=== PATIENT | male | born 1955 | race Caucasian/White ===

== ENCOUNTER → 2019-11-25 12:13 | Outpatient (CLI) | payer SELFPAY ==
[2019-11-25 12:30] LABS: Basophils % 0.5 % (0.1-2.0); Eosinophils # 0.1 K/mm3 (0.0-0.4); Eosinophils % 1.9 % (0.1-12.0); Hemoglobin 14.9 g/dL (14.1-18.0); Lymphocytes % 19.3 % (10-50); Mean Corpuscular HGB Conc 34.7 g/dL (31.8-35.4); Mean Corpuscular Hemoglobin 30.9 pg (27.0-31.2); Mean Platelet Volume 8.4 fl (7.4-10.4); Monocytes # 0.3 K/mm3 (0.1-1.0); Monocytes % 4.7 % (1.7-9.3); Neutrophils # 3.9 K/mm3 (1.8-7.8); Neutrophils % 73.5 % (37.0-80.0); Platelet Count 206 K/mm3 (142-424); Red Blood Count 4.83 M/mm3 (4.60-6.20); White Blood Count 5.4 K/mm3 (4.8-10.8)
[2019-11-25 13:20] LABS: Alanine Aminotransferase 13 U/L (12-78); Albumin Level 4.3 g/dl (3.5-5.0); Albumin/Globulin Ratio 1.8 (1.1-1.8); Alkaline Phosphatase 88 U/L (38-126); Anion Gap 10.7 mEq/L (5-15); Aspartate Amino Transferase 27 U/L (17-59); Bilirubin,Total 1.2 mg/dl (0.2-1.3); Blood Urea Nitrogen 22 mg/dl (9-20); Calcium 9.2 mg/dl (8.4-10.2); Carbon Dioxide 31 mmol/L (22.0-30.0); Chloride 105 mmol/L (98-107); Estimated Glomerular Filt Rate 97 ml/min (>60); GFR (African American) 117 ML/MIN (>60); Globulin 2.4 g/dL (1.3-3.2); Glucose 104 mg/dl (74-100); Potassium 4.7 mmoL/L (3.5-5.1); Sodium 142 mmol/L (136-145); Total Protein,Serum 6.7 g/dl (6.3-8.2)
[2019-11-25 13:41] LABS: Hemoglobin A1C 5.6 % (4.0-6.0)
[2019-11-25 18:23] LABS: Total Iron Binding Capacity 322 ug/dL (261-462)
[2019-11-26 15:32] LABS: Vitamin B12 316 pg/mL (232-1245)
== END ==
PROVIDERS: Visit Provider Nurse Practitioner Family
DX: R00.1 Bradycardia, unspecified (principal); R73.09 Other abnormal glucose; E61.1 Iron deficiency; Z12.5 Encounter for screening for malignant neoplasm of prostate
CPT/HCPCS: 36415; 80053; 82607; 83036; 83550; 85025; G0103

== ENCOUNTER → 2020-04-14 16:36 | Outpatient (CLI) | payer MEDICAID, SELFPAY ==
[2020-04-14 20:48] LABS: Coronavirus 19 IgG Antibody Negative (Negative); Coronavirus 19 IgM Antibody Negative (Negative)
== END ==
PROVIDERS: PCP Nurse Practitioner Family; Visit Provider Nurse Practitioner Family
DX: Z03.818 Encounter for observation for suspected exposure to other biological agents ruled out (principal)
CPT/HCPCS: 36415; 86328

== ENCOUNTER → 2020-06-23 11:35 | Outpatient (CLI) | payer OTHER, SELFPAY ==
[2020-06-23 11:57] LABS: Basophils # 0.1 K/mm3 (0-0.2); Basophils % 0.8 % (0.1-2.0); Eosinophils # 0.1 K/mm3 (0.0-0.4); Hematocrit 44.1 % (42.0-52.0); Hemoglobin 14.3 g/dL (14.1-18.0); Lymphocytes # 0.9 K/mm3 (0.7-4.5); Lymphocytes % 15.7 % (10-50); Mean Corpuscular HGB Conc 32.5 g/dL (31.8-35.4); Mean Corpuscular Hemoglobin 28.7 pg (27.0-31.2); Mean Corpuscular Volume 88.5 fl (80-94); Mean Platelet Volume 7.5 fl (7.4-10.4); Monocytes # 0.3 K/mm3 (0.1-1.0); Neutrophils # 4.3 K/mm3 (1.8-7.8); Neutrophils % 76.6 % (37.0-80.0); Platelet Count 252 K/mm3 (142-424); Red Blood Count 4.98 M/mm3 (4.60-6.20); Red Cell Distribution Width 12.8 % (11.5-17.5); White Blood Count 5.7 K/mm3 (4.8-10.8)
[2020-06-23 12:15] LABS: Hemoglobin A1C 5.5 % (4.0-6.0)
[2020-06-23 13:26] LABS: Anion Gap 11.7 mEq/L (5-15); Blood Urea Nitrogen 12 mg/dl (9-20); Calcium 10.1 mg/dl (8.4-10.2); Carbon Dioxide 30 mmol/L (22.0-30.0); Chloride 105 mmol/L (98-107); Chol/HDL Ratio 2.2 (1-3.5); Cholesterol 220 mg/dl (140-200); Estimated Glomerular Filt Rate 97 ml/min (>60); GFR (African American) 117 ML/MIN (>60); Glucose 105 mg/dl (74-100); HDL Cholesterol 100 mg/dl (40-60); Potassium 4.7 mmoL/L (3.5-5.1); Sodium 142 mmol/L (136-145); Triglycerides 107 mg/dl (30-150); VLDL Cholesterol 21 mg/dL (0-40)
[2020-06-23 13:37] LABS: Direct LDL Cholesterol 90.77 mg/dL (100-129)
[2020-06-23 13:41] LABS: 25-OH Vitamin D, Total 27.3 ng/mL (30-100)
[2020-06-23 13:42] LABS: T4 (Thyroxine) 4.1 ug/dl (5.53-11.0)
[2020-06-23 13:56] LABS: Thyroid Stimulating Hormone 1.99 uIU/mL (0.465-4.68)
== END ==
PROVIDERS: Visit Provider Nurse Practitioner Family
DX: R53.83 Other fatigue (principal); R73.03 Prediabetes; E78.5 Hyperlipidemia, unspecified; E55.9 Vitamin D deficiency, unspecified
CPT/HCPCS: 36415; 80048; 80061; 82306; 83036; 84436; 84443; 85025

== ENCOUNTER → 2020-06-23 11:56 | Outpatient (CLI) | payer OTHER, SELFPAY | PROVIDERS: PCP Nurse Practitioner Family; Visit Provider Internal Medicine Cardiovascular Disease | DX: R55 Syncope and collapse (principal); R42 Dizziness and giddiness; R00.1 Bradycardia, unspecified | CPT/HCPCS: 93225; 93226 ==

== ENCOUNTER → 2020-07-07 13:36 | Outpatient (CLI) | payer OTHER, SELFPAY | LOC: RT 13:37 → SL 13:39 | PROVIDERS: PCP Nurse Practitioner Family; Visit Provider Internal Medicine Cardiovascular Disease | DX: G47.33 Obstructive sleep apnea (adult) (pediatric) (principal); R55 Syncope and collapse; R42 Dizziness and giddiness; R00.1 Bradycardia, unspecified | CPT/HCPCS: 95806 ==

== ENCOUNTER → 2020-07-10 07:32 | Outpatient (CLI) | payer SELFPAY ==
--- NOTE | 2020-07-10 07:33 | CT_ITS ---
PROCEDURE: CT HEART W CALCIUM SCORE CLINICAL HISTORY: eval for cad COMPARISON: No exams were available for comparison TECHNIQUE: Axial images obtained with sagittal and coronal reformats. All CT scans at the facility use one or more dose reduction, viz: automated exposure control, ma/kV adjustment per patient size (including targeted exams where dose is matched to indication, i.e. head), or iterative reconstruction technique. FINDINGS: Coronary artery calcium score is 0. No identifiable calcific atherosclerotic plaque with very low cardiovascular disease risk There is an area of coarse calcification in the left hepatic lobe nonspecific. Tissue density noted medial to the lesser curvature of the stomach incompletely image possibly due to the body of the pancreas. Incidental note is made of 4 mm nodule in the lingula. Small nodular density is present in the right minor fissure 4 mm. IMPRESSION: No identifiable calcific atherosclerotic plaque with very low cardiovascular disease risk Small bilateral pulmonary nodules nonspecific. 6-12 month follow-up may confirm stability Dictated by: Shreyas Sotomayor MD 07/10/2020 16:56 Shreyas Sotomayor MD in [facility] 07/10/2020 16:56
[2020-07-10 11:20] LABS: Basophils % 0.6 % (0.1-2.0); Eosinophils # 0.1 K/mm3 (0.0-0.4); Eosinophils % 1.9 % (0.1-12.0); Hematocrit 44.6 % (42.0-52.0); Hemoglobin 14.7 g/dL (14.1-18.0); Lymphocytes % 17.1 % (10-50); Mean Corpuscular Hemoglobin 29.1 pg (27.0-31.2); Mean Corpuscular Volume 88.1 fl (80-94); Mean Platelet Volume 7.7 fl (7.4-10.4); Monocytes # 0.3 K/mm3 (0.1-1.0); Monocytes % 5.8 % (1.7-9.3); Neutrophils # 4.4 K/mm3 (1.8-7.8); Neutrophils % 74.6 % (37.0-80.0); Platelet Count 246 K/mm3 (142-424); Red Blood Count 5.06 M/mm3 (4.60-6.20); Red Cell Distribution Width 12.8 % (11.5-17.5); White Blood Count 5.9 K/mm3 (4.8-10.8)
[2020-07-10 11:42] LABS: Chloride 106 mmol/L (98-107); Potassium 4.9 mmoL/L (3.5-5.1); Sodium 141 mmol/L (136-145)
[2020-07-10 11:45] LABS: Blood Urea Nitrogen 16 mg/dl (9-20); Estimated Glomerular Filt Rate 97 ml/min (>60); GFR (African American) 117 ML/MIN (>60)
[2020-07-10 11:46] LABS: Anion Gap 8.9 mEq/L (5-15); Calcium 9.9 mg/dl (8.4-10.2); Carbon Dioxide 31 mmol/L (22.0-30.0); Glucose 116 mg/dl (74-100)
[2020-07-10 12:00] LABS: Coronavirus 19 IgG Antibody Negative (Negative); Coronavirus 19 IgM Antibody Negative (Negative)
== END ==
PROVIDERS: Internal Medicine; PCP Nurse Practitioner Family; Visit Provider Internal Medicine Cardiovascular Disease
DX: R42 Dizziness and giddiness (principal); R55 Syncope and collapse; R00.1 Bradycardia, unspecified; Z20.822 Contact with and (suspected) exposure to COVID-19; Z13.6 Encounter for screening for cardiovascular disorders
CPT/HCPCS: 75571; 80048; 85025; 86328; 93306

== ENCOUNTER → 2020-07-10 10:52 | Outpatient (CLI) | payer OTHER, SELFPAY ==
--- NOTE | 2020-07-10 | CA_ITS ---
APPROVED REPORT Exam: Exercise Treadmill Technologist: Emilia Schroeder Ht: 6 ft 0 in Wt: 220 lbs BSA: 2.22 m2 HR: 51 bpm BP: 123/65 mmHg Indications: Syncope Stress Test Details Test: Bill HR Resting HR: 51 bpm Max Heart Rate (APMHR): 154 bpm Max HR Achieved: 142 bpm Target HR (85% APMHR): 130 bpm % of APMHR: 92 Recovery HR: 68 bpm BP Resting BP: 123.0/65.0 mmHg Max BP: 150.0/86.0 mmHg Recovery BP: 127.0/69.0 mmHg ECG Resting ECG: Sinus rhythm Clinical Exercise duration: 05:55 min Highest Stage Achieved: Exercise capacity: 7.0 METs Stress ECG Conclusion Bill protocol complete, METs 7.0, Test stopped due to shortness of breath. Patient exercised 5:55. Symptoms: Shortness of breath during peak exercise, resolved in recovery. No chest pain. Arrhythmias/Ectopy: No ectopy noted. ST- T Changes: Greater than 1.[address] depression. Conclusion: GXT only, Appropriate Blood Pressure response. Average exercise capacity, Abnormal GXT. Electronically signed by : Blair Rosenberg, 07/13/2020 15:17:13
== END ==
PROVIDERS: Visit Provider Internal Medicine
DX: Z01.818 Encounter for other preprocedural examination (principal); Z20.822 Contact with and (suspected) exposure to COVID-19; R07.89 Other chest pain
CPT/HCPCS: 80048; 85025; 86328; 93017; 93306

== ENCOUNTER 2020-07-14 10:46 | Day surgery (SDC) | payer OTHER, SELFPAY ==
[2020-07-14] VITALS (11 sets, daily range): BP systolic 92–135; BP diastolic 47–86; PULSE 47–66; RESP 16–20; TEMP 36.7; O2SAT 64–99; BMI 29.1
--- NOTE | 2020-07-14 10:50 | IR_ITS ---
APPROVED REPORT Patient Location: Outpatient Saw[facility] Relief Worker: CHIKA Yan RT (R) PROCEDURES Left heart catheterization Left ventriculogram Selective coronary angiogram INDICATION Abnormal echocardiogram, Angina pectoris, Abnormal EKG Informed consent was obtained prior to the procedure. COMPLICATIONS None Estimated Blood Loss: Less than 10 mls TECHNIQUE One percent lidocaine used to anesthetize the right anterior aspect of the wrist. The right radial artery was accessed via the Seldinger technique. A 6 Chilean sheath was placed in the right radial artery. 2.5 mg of verapamil, 800 mcg of nitroglycerin, 1mg Lidocaine and 5000 U Heparin were given through the arterial sheath. The trap catheter was also used to perform left heart catheterization, left ventriculogram and selective coronary angiogram. At the end of the procedure the sheath was removed good hemostasis was achieved using Traclet band, patient was transferred to the postop holding area in stable condition. ANGIOGRAPHIC RESULTS The left main artery Normal The left anterior descending artery Proximally normal with a mid vessel 90% systolic compression/myocardial bridge The circumflex artery Nondominant normal The right coronary artery Dominant normal The HENRIQUEZ ventriculogram reveals Hyperdynamic with some evidence of apical hocm The left ventricular end-diastolic pressure 15 mmHg IMPRESSION No angiographic evidence of atherosclerotic plaque 90% mid LAD systolic compression/myocardial bridge Hyperdynamic ventricle with suggestion of apical hocm Mildly elevated LVEDP PLAN 1. 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 If patient develops recalcitrant angina pectoris in the future consideration to stent this vessel was possible or possibly consider single-vessel CABG with CORCORAN to the LAD. This should be a last resort 2. Recommend verapamil plus beta-blockers 3. Avoid ZITA inhibitors or other afterload reducing medications Electronically signed by : Blair Rosenberg, 07/14/2020 12:29:50
== END 2020-07-14 15:05 | disposition home or self-care (01) ==
LOC: CATHLAB 10:48
PROVIDERS: PCP Nurse Practitioner Family; Visit Provider Internal Medicine
DX: I42.2 Other hypertrophic cardiomyopathy (principal); R94.39 Abnormal result of other cardiovascular function study; Z87.891 Personal history of nicotine dependence; I25.118 Atherosclerotic heart disease of native coronary artery with other forms of angina pectoris; R55 Syncope and collapse
CPT/HCPCS: 93458; 99152; C1725; C1769; J1644; Q9967

== ENCOUNTER → 2020-07-26 11:05 | Outpatient (CLI) | payer OTHER, SELFPAY ==
--- NOTE | 2020-07-26 | CA_ITS ---
APPROVED REPORT EXAM: Comprehensive 2D, Doppler, and color-flow Echocardiogram Superintendent Maintenance: SHERRY Manuel, RVS Ht: 6 ft 0 in Wt: 215lbs BSA: 2.20 HR: 50 bpm BP: 124/65 mmHg Rhythm: Bradycardia Indications: further assessment for Yuan's endocarditis Echo Enhancing Agent Indication: Endocardial border delineation Agent(s) / Amount(s) Used: Definity 2 cc Left Ventricle Atrium is mildly enlarged, left ventricle is normal size, left ventricle wall thickness is upper limit of normal, there is preserved left ventricular systolic function, visually estimated ejection fraction 55 to 60% with no obvious regional wall motion abnormality, Definity contrast was utilized to delineate the endocardial surfaces, there is no left ventricular thrombus seen. Right Ventricle Right atrium and right ventricle are relatively normal size and function. Aortic Valve Aortic valve is minimally thickened and fibrosed, there is no aortic stenosis. Mitral Valve Mitral valve is grossly normal. Tricuspid Valve Tricuspid valve grossly normal. Pulmonic Valve Pulmonic valve is poorly visualized. Great Vessels Aortic root is normal size. Pericardium No significant pericardial effusion noted. Conclusion 1. Limited echocardiogram with Definity contrast performed. 2. Normal left ventricular size, preserved left ventricular systolic function, visually estimated ejection fraction 55 to 60% with no regional wall motion abnormality, there is no evidence of left ventricular thrombus, apical hypertrophy, or basal septal hypertrophy to suggest hypertrophic cardiomyopathy. 3. No significant pericardial effusion noted. Electronically signed by : Jose G Solorio, 07/27/2020 15:16:57
== END ==
PROVIDERS: PCP Nurse Practitioner Family; Visit Provider Internal Medicine Cardiovascular Disease
DX: R06.00 Dyspnea, unspecified (principal); R94.31 Abnormal electrocardiogram [ECG] [EKG]; R94.39 Abnormal result of other cardiovascular function study; R93.1 Abnormal findings on diagnostic imaging of heart and coronary circulation; R55 Syncope and collapse; I20.8 Other forms of angina pectoris; I42.2 Other hypertrophic cardiomyopathy
CPT/HCPCS: 93308; Q9957

== ENCOUNTER → 2020-12-04 13:36 | Outpatient (CLI) | payer SELFPAY ==
[2020-12-07 07:34] LABS: QuantiFERON-TB Gold Plus Positive (Negative)
== END ==
PROVIDERS: Visit Provider Emergency Medicine
DX: Z11.1 Encounter for screening for respiratory tuberculosis (principal)
CPT/HCPCS: 36415; 86480

== ENCOUNTER → 2020-12-07 15:11 | Outpatient (CLI) | payer SELFPAY ==
--- NOTE | 2020-12-07 15:15 | XR_ITS ---
PROCEDURE: XR CHEST 2V CLINICAL HISTORY: Rule out TB Positive TB test COMPARISON: No exams were available for comparison FINDINGS: The cardiomediastinal silhouette and pulmonary vascularity are within normal limits. The lungs are clear without infiltrates, suspicious nodules, or pleural effusions. Degenerative change thoracic spine IMPRESSION: No acute findings. Dictated by: Shreyas Sotomayor MD 12/07/2020 16:07 Shreyas Sotomayor MD in [place] 12/07/2020 16:07
== END ==
PROVIDERS: PCP Nurse Practitioner Family; Visit Provider Nurse Practitioner Family
DX: R76.11 Nonspecific reaction to tuberculin skin test without active tuberculosis (principal)
CPT/HCPCS: 71046

== ENCOUNTER → 2021-01-19 12:24 | Outpatient (CLI) | payer OTHER, SELFPAY ==
[2021-01-19 12:45] LABS: Basophils # 0.1 K/mm3 (0-0.2); Basophils % 0.8 % (0.1-2.0); Eosinophils # 0.1 K/mm3 (0.0-0.4); Eosinophils % 1.8 % (0.1-12.0); Hematocrit 46.1 % (42.0-52.0); Hemoglobin 15.1 g/dL (14.1-18.0); Lymphocytes # 1.1 K/mm3 (0.7-4.5); Lymphocytes % 18.2 % (10-50); Mean Corpuscular HGB Conc 32.8 g/dL (31.8-35.4); Mean Corpuscular Volume 91.3 fl (80-94); Mean Platelet Volume 7.8 fl (7.4-10.4); Monocytes # 0.4 K/mm3 (0.1-1.0); Monocytes % 5.7 % (1.7-9.3); Neutrophils # 4.5 K/mm3 (1.8-7.8); Neutrophils % 73.6 % (37.0-80.0); Platelet Count 246 K/mm3 (142-424); Red Blood Count 5.04 M/mm3 (4.60-6.20); Red Cell Distribution Width 12.7 % (11.5-17.5); White Blood Count 6.1 K/mm3 (4.8-10.8)
[2021-01-19 15:45] LABS: Alanine Aminotransferase 17 U/L (12-78); Albumin Level 4.5 g/dl (3.5-5.0); Albumin/Globulin Ratio 1.7 (1.1-1.8); Alkaline Phosphatase 74 U/L (38-126); Anion Gap 14.2 mEq/L (5-15); Aspartate Amino Transferase 31 U/L (17-59); Bilirubin,Total 0.7 mg/dl (0.2-1.3); Blood Urea Nitrogen 19 mg/dl (9-20); Calcium 9.6 mg/dl (8.4-10.2); Carbon Dioxide 30 mmol/L (22.0-30.0); Chloride 103 mmol/L (98-107); Estimated Glomerular Filt Rate 113 ml/min (>60); GFR (African American) 137 ML/MIN (>60); Globulin 2.7 g/dL (1.3-3.2); Glucose 108 mg/dl (74-100); Potassium 5.2 mmoL/L (3.5-5.1); Sodium 142 mmol/L (136-145); Total Protein,Serum 7.2 g/dl (6.3-8.2)
== END ==
PROVIDERS: Visit Provider Internal Medicine Pulmonary Disease
DX: J45.909 Unspecified asthma, uncomplicated (principal); Z22.7 Latent tuberculosis
CPT/HCPCS: 36415; 80053; 85025

== ENCOUNTER → 2021-02-19 08:49 | Outpatient (CLI) | payer OTHER, SELFPAY ==
[2021-02-19 11:46] LABS: Alanine Aminotransferase 17 U/L (12-78); Alkaline Phosphatase 77 U/L (38-126); Aspartate Amino Transferase 30 U/L (17-59); Bilirubin,Direct 0.4 mg/dl (0.0-0.4); Bilirubin,Total 0.4 mg/dl (0.2-1.3); Total Protein,Serum 6.7 g/dl (6.3-8.2)
== END ==
PROVIDERS: Visit Provider Internal Medicine Pulmonary Disease
DX: Z22.7 Latent tuberculosis (principal)
CPT/HCPCS: 36415; 80076

== ENCOUNTER → 2021-03-26 09:39 | Outpatient (CLI) | payer OTHER, SELFPAY ==
[2021-03-26 11:26] LABS: Alanine Aminotransferase 18 U/L (12-78); Albumin Level 4.5 g/dl (3.5-5.0); Alkaline Phosphatase 61 U/L (38-126); Aspartate Amino Transferase 30 U/L (17-59); Bilirubin,Direct 0.2 mg/dl (0.0-0.4); Bilirubin,Indirect 0.3 mg/dL (0.0-0.9); Bilirubin,Total 0.5 mg/dl (0.2-1.3); Bilirubin,Unconjugated 0.3 mg/dL (0.0-1.1); Total Protein,Serum 6.9 g/dl (6.3-8.2)
== END ==
PROVIDERS: Visit Provider Internal Medicine Pulmonary Disease
DX: Z22.7 Latent tuberculosis (principal)
CPT/HCPCS: 36415; 80076

== ENCOUNTER → 2021-04-23 12:41 | Outpatient (CLI) | payer OTHER, SELFPAY ==
[2021-04-23 13:46] LABS: Alanine Aminotransferase 17 U/L (12-78); Alkaline Phosphatase 61 U/L (38-126); Aspartate Amino Transferase 34 U/L (17-59); Bilirubin,Indirect 0.2 mg/dL (0.0-0.9); Bilirubin,Total 0.2 mg/dl (0.2-1.3); Bilirubin,Unconjugated 0.2 mg/dL (0.0-1.1)
[2021-04-23 13:47] LABS: Albumin Level 4.4 g/dl (3.5-5.0); Total Protein,Serum 6.9 g/dl (6.3-8.2)
== END ==
PROVIDERS: Visit Provider Internal Medicine Pulmonary Disease
DX: Z22.7 Latent tuberculosis (principal)
CPT/HCPCS: 36415; 80076

== ENCOUNTER → 2021-10-12 09:50 | Outpatient (CLI) | payer OTHER, SELFPAY ==
[2021-10-12 17:13] LABS: Alanine Aminotransferase 19 U/L (12-78); Albumin Level 4.5 g/dl (3.5-5.0); Albumin/Globulin Ratio 1.6 (1.1-1.8); Alkaline Phosphatase 92 U/L (38-126); Anion Gap 11.9 mEq/L (5-15); Aspartate Amino Transferase 34 U/L (17-59); Bilirubin,Total 1.3 mg/dl (0.2-1.3); Blood Urea Nitrogen 18 mg/dl (9-20); Calcium 9.5 mg/dl (8.4-10.2); Carbon Dioxide 28 mmol/L (22.0-30.0); Chloride 102 mmol/L (98-107); Chol/HDL Ratio 2.4 (1-3.5); Cholesterol 215 mg/dl (140-200); Estimated Glomerular Filt Rate 84 ml/min (>60); GFR (African American) 102 ML/MIN (>60); Globulin 2.8 g/dL (1.3-3.2); Glucose 114 mg/dl (74-100); HDL Cholesterol 88 mg/dl (40-60); Potassium 3.9 mmoL/L (3.5-5.1); Sodium 138 mmol/L (136-145); Total Protein,Serum 7.3 g/dl (6.3-8.2); Triglycerides 93 mg/dl (30-150); VLDL Cholesterol 19 mg/dL (0-40)
[2021-10-12 17:21] LABS: Basophils # 0.1 K/mm3 (0-0.2); Basophils % 1.1 % (0.1-2.0); Eosinophils # 0.1 K/mm3 (0.0-0.4); Eosinophils % 1.1 % (0.1-12.0); Hematocrit 45.9 % (42.0-52.0); Hemoglobin 15.6 g/dL (14.1-18.0); Lymphocytes # 0.9 K/mm3 (0.7-4.5); Mean Corpuscular HGB Conc 33.9 g/dL (31.8-35.4); Mean Corpuscular Volume 88.6 fl (80-94); Mean Platelet Volume 9.6 fl (7.4-10.4); Monocytes # 0.3 K/mm3 (0.1-1.0); Monocytes % 5.4 % (1.7-9.3); Neutrophils # 3.9 K/mm3 (1.8-7.8); Neutrophils % 74.4 % (37.0-80.0); Platelet Count 277 K/mm3 (142-424); Red Blood Count 5.18 M/mm3 (4.60-6.20); Red Cell Distribution Width 13.3 % (11.5-17.5); White Blood Count 5.2 K/mm3 (4.8-10.8)
[2021-10-12 17:24] LABS: Direct LDL Cholesterol 88.92 mg/dL (100-129)
[2021-10-12 17:30] LABS: 25-OH Vitamin D, Total 40.6 ng/mL (30-100)
[2021-10-12 17:31] LABS: T4 (Thyroxine) 4.2 ug/dl (5.53-11.0)
[2021-10-12 17:45] LABS: Prostate Specific Ag Screen 1.3 ng/ml (0.0-4.0)
== END ==
PROVIDERS: PCP Nurse Practitioner Family; Visit Provider Nurse Practitioner Family
DX: Z00.00 Encounter for general adult medical examination without abnormal findings (principal)
CPT/HCPCS: 80053; 80061; 82306; 84436; 84443; 85025; G0103

== ENCOUNTER → 2022-04-18 16:25 | Outpatient (CLI) | payer OTHER, SELFPAY ==
[2022-04-18 17:29] LABS: C-Reactive Protein < 0.3 mg/L (0-4)
[2022-04-18 18:20] LABS: Erythrocyte Sedimentation Rate 35 mm/hr (0-20)
[2022-04-20 11:26] LABS: Homocyst(e)ine 18.9 umol/L (0.0-17.2); Rapid Plasma Reagin Ab Titer Non Reactive (NonRea<1:1)
[2022-04-22 16:15] LABS: Anti-Centromere B Antibodies <0.2 AI (0.0-0.9); Anti-DNA (DS) Ab Qn 1 IU/mL (0-9); Anti-Jo-1 <0.2 AI (0.0-0.9); Anti-Smith Antibody <0.2 AI (0.0-0.9); Antichromatin Antibodies <0.2 AI (0.0-0.9); Antiscleroderma-70 Antibodies <0.2 AI (0.0-0.9); RNP Antibodies <0.2 AI (0.0-0.9); Sjogren's Anti-SS-A <0.2 AI (0.0-0.9); Sjogren's Anti-SS-B <0.2 AI (0.0-0.9)
[2022-04-25 13:09] LABS: Methylmalonic Acid 138 nmol/L (0-378)
== END ==
PROVIDERS: PCP Nurse Practitioner Family; Visit Provider Nurse Practitioner Family
DX: G93.40 Encephalopathy, unspecified (principal); R41.3 Other amnesia; Z82.0 Family history of epilepsy and other diseases of the nervous system; Z86.69 Personal history of other diseases of the nervous system and sense organs; E53.8 Deficiency of other specified B group vitamins; Z87.898 Personal history of other specified conditions
CPT/HCPCS: 36415; 82131; 83090; 85651; 86140; 86225; 86235; 86592

== ENCOUNTER → 2022-04-21 13:55 | Outpatient (CLI) | payer OTHER, SELFPAY ==
[2022-04-24 05:45] LABS: Vitamin B1 141.1 nmol/L (66.5-200.0)
== END ==
PROVIDERS: PCP Nurse Practitioner Family; Visit Provider Nurse Practitioner Family
DX: G93.40 Encephalopathy, unspecified (principal); Z87.898 Personal history of other specified conditions
CPT/HCPCS: 84425

== ENCOUNTER → 2022-05-07 11:51 | Outpatient (CLI) | payer OTHER, SELFPAY ==
[2022-05-07 13:26] LABS: Chol/HDL Ratio 2.3 (1-3.5); Cholesterol 217 mg/dl (140-200); HDL Cholesterol 93 mg/dl (40-60); Triglycerides 80 mg/dl (30-150); VLDL Cholesterol 16 mg/dL (0-40)
[2022-05-07 13:37] LABS: Direct LDL Cholesterol 99.66 mg/dL (100-129)
== END ==
PROVIDERS: PCP Nurse Practitioner Family; Visit Provider Nurse Practitioner Family
DX: E78.5 Hyperlipidemia, unspecified (principal)
CPT/HCPCS: 36415; 80061

== ENCOUNTER → 2022-05-21 19:58 | Outpatient (CLI) | payer OTHER, SELFPAY | PROVIDERS: PCP Nurse Practitioner Family; Visit Provider Nurse Practitioner Family | DX: G47.33 Obstructive sleep apnea (adult) (pediatric) (principal); R09.02 Hypoxemia | CPT/HCPCS: 95810 ==

== ENCOUNTER → 2022-08-22 14:00 | Outpatient (CLI) | payer OTHER, SELFPAY | PROVIDERS: PCP Nurse Practitioner Family; Visit Provider Internal Medicine Pulmonary Disease | DX: R06.09 Other forms of dyspnea (principal) | CPT/HCPCS: 94762 ==

== ENCOUNTER → 2022-10-01 09:03 | Outpatient (POV) | payer OTHER, SELFPAY | PROVIDERS: Visit Provider Dermatology | DX: Z00.00 Encounter for general adult medical examination without abnormal findings (principal) ==

== ENCOUNTER → 2022-10-02 13:11 | Outpatient (CLI) | payer OTHER, SELFPAY ==
[2022-10-02 14:10] VITALS: PULSE 78
== END ==
PROVIDERS: PCP Nurse Practitioner Family; Visit Provider Internal Medicine Pulmonary Disease
DX: R06.09 Other forms of dyspnea (principal)
CPT/HCPCS: 94060; 94618; 94640; 94727; 94729

== ENCOUNTER 2023-07-28 19:11 | Outpatient (CLI) | payer OTHER, SELFPAY ==
[2023-07-28 18:35] LABS: Chloride 108 mmol/L (98-107); Potassium 5.3 mmoL/L (3.5-5.1); Sodium 141 mmol/L (136-145)
[2023-07-28 18:37] LABS: Blood Urea Nitrogen 15 mg/dl (9-20)
[2023-07-28 18:38] LABS: Alanine Aminotransferase 15 U/L (12-78); Albumin Level 4.5 g/dl (3.5-5.0); Albumin/Globulin Ratio 1.6 (1.1-1.8); Alkaline Phosphatase 100 U/L (38-126); Anion Gap 7.3 mEq/L (5-15); Aspartate Amino Transferase 29 U/L (17-59); Bilirubin,Total 1.1 mg/dl (0.2-1.3); Carbon Dioxide 31 mmol/L (22.0-30.0); Cholesterol 252 mg/dl (140-200); Estimated Glomerular Filt Rate 96 ml/min (>60); GFR (African American) 116 ML/MIN (>60); Globulin 2.9 g/dL (1.3-3.2); Total Protein,Serum 7.4 g/dl (6.3-8.2); Triglycerides 83 mg/dl (30-150); VLDL Cholesterol 17 mg/dL (0-40)
[2023-07-28 18:39] LABS: Chol/HDL Ratio 3.1 (1-3.5); Glucose 103 mg/dl (74-100); HDL Cholesterol 82 mg/dl (40-60)
[2023-07-28 18:40] LABS: Basophils # 0.1 K/mm3 (0-0.2); Basophils % 0.9 % (0.1-2.0); Eosinophils # 0.1 K/mm3 (0.0-0.4); Eosinophils % 1.6 % (0.1-12.0); Hematocrit 48.4 % (42.0-52.0); Hemoglobin 15.4 g/dL (14.1-18.0); Lymphocytes # 1.2 K/mm3 (0.7-4.5); Lymphocytes % 21.7 % (10-50); Mean Corpuscular HGB Conc 31.7 g/dL (31.8-35.4); Mean Corpuscular Hemoglobin 29.4 pg (27.0-31.2); Mean Corpuscular Volume 92.6 fl (80-94); Mean Platelet Volume 8.7 fl (7.4-10.4); Monocytes # 0.3 K/mm3 (0.1-1.0); Monocytes % 5.2 % (1.7-9.3); Neutrophils # 3.9 K/mm3 (1.8-7.8); Neutrophils % 70.7 % (37.0-80.0); Platelet Count 228 K/mm3 (142-424); Red Blood Count 5.23 M/mm3 (4.60-6.20); White Blood Count 5.6 K/mm3 (4.8-10.8)
[2023-07-28 18:49] LABS: Direct LDL Cholesterol 111.47 mg/dL (100-129)
[2023-07-28 19:09] LABS: Thyroid Stimulating Hormone 1.54 uIU/mL (0.465-4.68)
[2023-07-28 19:28] LABS: Hemoglobin A1C 5.8 % (4.0-6.0)
[2023-07-28 19:39] LABS: 25-OH Vitamin D, Total 42.1 ng/mL (30-100)
[2023-07-28 19:58] LABS: Prostate Specific Ag Screen 0.9 ng/ml (0.0-4.0)
== END 2023-07-28 23:59 ==
LOC: LAB.DROPOF 19:11
PROVIDERS: PCP Family Medicine; Visit Provider Family Medicine
DX: R53.83 Other fatigue; G47.30 Sleep apnea, unspecified; R41.3 Other amnesia; E53.8 Deficiency of other specified B group vitamins; E87.5 Hyperkalemia; R73.09 Other abnormal glucose; Z82.0 Family history of epilepsy and other diseases of the nervous system; Z13.21 Encounter for screening for nutritional disorder; Z87.891 Personal history of nicotine dependence; Z79.899 Other long term (current) drug therapy; Z12.5 Encounter for screening for malignant neoplasm of prostate
CPT/HCPCS: 80053; 80061; 82306; 83036; 84443; 85025; G0103

== ENCOUNTER 2024-07-29 11:26 | Outpatient (CLI) | payer OTHER, SELFPAY ==
[2024-07-29 12:10] LABS: Basophils % 0.5 % (0.1-2.0); Eosinophils # 0.1 K/mm3 (0.0-0.4); Eosinophils % 1.9 % (0.1-12.0); Hematocrit 40.8 % (42.0-52.0); Hemoglobin 13.8 g/dL (14.1-18.0); Lymphocytes % 17.6 % (10-50); Mean Corpuscular HGB Conc 33.8 g/dL (31.8-35.4); Mean Corpuscular Hemoglobin 29.7 pg (27.0-31.2); Mean Corpuscular Volume 87.9 fl (80-94); Mean Platelet Volume 10.4 fl (7.4-10.4); Monocytes # 0.3 K/mm3 (0.1-1.0); Neutrophils # 4.2 K/mm3 (1.8-7.8); Neutrophils % 73.6 % (37.0-80.0); Platelet Count 209 K/mm3 (142-424); Red Blood Count 4.64 M/mm3 (4.60-6.20); Red Cell Distribution Width 12.3 % (11.5-17.5); White Blood Count 5.7 K/mm3 (4.8-10.8)
[2024-07-29 12:35] LABS: Albumin Level 4.5 g/dl (3.5-5.0); Chloride 104 mmol/L (98-107); Sodium 139 mmol/L (136-145)
[2024-07-29 12:36] LABS: Potassium 4.6 mmoL/L (3.5-5.1)
[2024-07-29 12:38] LABS: Alanine Aminotransferase 17 U/L (12-78); Albumin/Globulin Ratio 2.3 (1.1-1.8); Alkaline Phosphatase 73 U/L (38-126); Anion Gap 9.6 mEq/L (5-15); Aspartate Amino Transferase 23 U/L (17-59); Blood Urea Nitrogen 16 mg/dl (9-20); Carbon Dioxide 30 mmol/L (22.0-30.0); Estimated Glomerular Filt Rate 96 ml/min (>60); GFR (African American) 116 ML/MIN (>60); Total Protein,Serum 6.5 g/dl (6.3-8.2)
[2024-07-29 12:39] LABS: Calcium 9.1 mg/dl (8.4-10.2); Cholesterol 200 mg/dl (140-200); Glucose 90 mg/dl (74-100); HDL Cholesterol 86 mg/dl (40-60); Triglycerides 58 mg/dl (30-150); VLDL Cholesterol 12 mg/dL (0-40)
[2024-07-29 12:41] LABS: Chol/HDL Ratio 2.3 (1-3.5)
[2024-07-29 12:55] LABS: 25-OH Vitamin D, Total 60.8 ng/mL (30-100)
[2024-07-29 13:06] LABS: Direct LDL Cholesterol 87.42 mg/dL (100-129)
[2024-07-29 13:08] LABS: Thyroid Stimulating Hormone 1.94 uIU/mL (0.465-4.68)
[2024-07-29 13:56] LABS: Vitamin B12 831 pg/mL (239-931)
== END 2024-07-29 23:59 | disposition home or self-care (01) ==
LOC: LAB 11:27
PROVIDERS: PCP Family Medicine; Visit Provider Family Medicine
DX: R53.83 Other fatigue (principal); E55.9 Vitamin D deficiency, unspecified; E53.8 Deficiency of other specified B group vitamins; Z12.5 Encounter for screening for malignant neoplasm of prostate
CPT/HCPCS: 36415; 80053; 80061; 82306; 82607; 84443; 85025; G0103

== ENCOUNTER 2025-03-31 14:30 | Outpatient (CLI) | payer OTHER, SELFPAY ==
[2025-03-31 18:57] LABS: Hematocrit 41.6 % (42.0-52.0); Hemoglobin 13.5 g/dL (14.1-18.0); Immature Granulocytes % 0.4 %; Mean Corpuscular HGB Conc 32.5 g/dL (31.8-35.4); Mean Corpuscular Hemoglobin 28.9 pg (27.0-31.2); Mean Corpuscular Volume 89.1 fl (80-94); Nucleated Red Blood Cells % 0 %; Platelet Count 207 K/mm3 (142-424); Red Blood Count 4.67 M/mm3 (4.60-6.20); Red Cell Distribution Width-SD 39.8 fL; White Blood Count 5.3 K/mm3 (4.8-10.8)
[2025-03-31 19:30] LABS: Alanine Aminotransferase 12 U/L (12-78); Albumin Level 4.3 g/dl (3.5-5.0); Albumin/Globulin Ratio 1.8 (1.1-1.8); Alkaline Phosphatase 99 U/L (38-126); Anion Gap 8.3 mEq/L (5-15); Aspartate Amino Transferase 20 U/L (17-59); Bilirubin,Total 0.9 mg/dl (0.2-1.3); Blood Urea Nitrogen 12 mg/dl (9-20); Calcium 9.4 mg/dl (8.4-10.2); Carbon Dioxide 30 mmol/L (22.0-30.0); Chloride 103 mmol/L (98-107); Creatinine,Serum 0.90 mg/dl (0.66-1.25); Estimated Glomerular Filt Rate 83 ml/min (>60); GFR (African American) 101 ML/MIN (>60); Globulin 2.4 g/dL (1.3-3.2); Glucose 91 mg/dl (74-100); Potassium 4.3 mmoL/L (3.5-5.1); Sodium 137 mmol/L (136-145); Total Protein,Serum 6.7 g/dl (6.3-8.2)
[2025-03-31 20:20] LABS: Vitamin B12 793 pg/mL (239-931)
[2025-03-31 20:42] LABS: Hemoglobin A1C 5.4 % (4.0-6.0)
--- OUTSIDE RECORDS SUMMARY | 2025-04-01 12:45 | XMS_ITS | Clinical Summary ---
Author Organization [facility] Address [address] [facility] [address] [place] [address] Care Team Providers Care Scout Sniper Name Role Phone Unavailable Primary Care Provider Unavailabl e Social History Tobacco Use Types Packs/Day Years Used Date Smoking Tobacco: Never Assessed Sex and Gender Information Value Date Recorded Sex Assigned at Not on file Legal Sex Male 2:31 PM EDT Gender Identity Not on file Sexual Orientation Not on file Plan of Treatment Not on file
--- OUTSIDE RECORDS SUMMARY | 2025-04-01 12:45 | XMS_ITS | Encounter Summary ---
Author Organization [facility] Address [address] [place] [address] Care Team Providers Care Mobile Lounge Driver Name Role Phone David Urena APRN Primary Care Provider +1- [phone] Encounter Details Date Type Department Care Team (Late st Contact Info) Description 05/19/2023 Orders Only External Location [address] [place] [address] Provider, External Social History Tobacco Use Types Packs/Day Years Used Date Smoking Tobacco: Never Assessed Sex and Gender Information Value Date Recorded Sex Assigned at Not on file Legal Sex Male 8:09 PM EDT Gender Identity Not on file Sexual Orientation Not on file documented as of this encounter Plan of Treatment Not on file documented as of this encounter Procedures Procedure Name Priority Date/Time Associated Diagnosis Comments MR OUTSIDE IMAGES 05/19/2023 10:13 AM EST documented in this encounter Results * MR transfer of outside films (05/19/2023 10:13 AM EST) Anatomical Region Laterality Modality Magnetic Resonan ce 05/19/2023 10:1 3 AM EST us External Provider IMG MRI PROCEDURES Final Resul t documented in this encounter Visit Diagnoses Not on filedocumented in this encounter Care Teams Mobile Lounge Driver Relationship Specialty Start Date End Date David Urena APRN [address] [place] [address] PCP - General 09/22/20 documented as of this encounter
--- OUTSIDE RECORDS SUMMARY | 2025-04-01 12:45 | XMS_ITS | Encounter Summary ---
Author Organization [facility] Address [address] [place] [address] Care Team Providers Care Double Surface Operator Name Role Phone Romel David Silver DADO OPERATOR Primary Care Provider +1- [phone] Reason for Visit * Reason Comments Med Refill Encounter Details Date Type Department Care Team (Late st Contact Info) Description 07/10/2024 Refill [facility] [address] [place] [address] Ida Cedillo APRN [address] [place] [address] Social History Tobacco Use Types Packs/Day Years Used Date Smoking Tobacco: Former Cigarettes 0.5 5 1 - 05/11/1999 Passive Smoke Exposure: Never Smokeless Tobacco: Never Alcohol Use Standard Drinks/Week Comments Yes 0 (1 standard drink = 0.6 oz pur e alcohol) Very seldom burbon or a beer PHQ-2 Answer Date Recorded Patient Health Questionnaire-2 Score 0 10/30/2023 CAGE ASSESSMENT Answer Date Recorded Cage unable to access Not on file 01/06/2024 Maximum number of drinks you had on a given occasion in the last month? 0 drinks 01/06/2024 How many alcoholic Beverages do you typically drink in a week? 0 - 7 per week 01/06/2024 Have you ever felt you should CUT down on your d rinking? 0 01/06/2024 Have you been ANNOYED by peo ple criticizing your drinking? 0 01/06/2024 Have you felt GUILTY about your drinking? 0 01/06/2024 Have you had a drink first t jeremy in the morning (EYE-WIRE INSERTER) to steady your nerves or to get rid of a hangover? 0 01/06/2024 CAGE Questionnaire Score 0 024 Sex and Gender Information Value Date Recorded Sex Assigned at Not on file Legal Sex Male 8:09 PM EDT Gender Identity Not on file Sexual Orientation Not on file documented as of this encounter Miscellaneous Notes * Telephone Encounter - Ida Cedillo APRN - 07/13/2024 12:06 PM EST Duplicate order documented in this encounter Plan of Treatment Not on file documented as of this encounter Visit Diagnoses Not on filedocumented in this encounter Additional Health Concerns Assessment Noted Time A fall risk assessment has been complete d for the patient 10/30/2023 2:52 PM EDT A Body Mass Index follow-up plan has been documented for the patient 11/07/2023 3:59 PM EDT documented as of this encounter Care Teams Double Surface Operator Relationship Specialty Start Date End Date David Urena APRN [address] [place] [address] PCP - General 09/22/20 documented as of this encounter
--- OUTSIDE RECORDS SUMMARY | 2025-04-01 12:45 | XMS_ITS | Clinical Summary ---
Author Organization [facility] Address [address] [place] [address] Care Team Providers Care Leaf Conditioner Name Role Phone David Urena MATT Primary Care Provider +1- [phone] Allergies No known active allergies Medications cyanocobalamin 1000 MCG tablet Take 1 tablet (1,000 mcg) by mouth 1 (one) time each day. Active thiamine 250 MG tablet Take 1 tablet (250 mg) by mouth 1 (one) time each day. Active cholecalciferol (D3 2000) 50 MCG (2000 UT) capsule Take 1 capsule (2,000 Units) by mouth. Active Coenzyme Q10 (CoQ10) 200 MG capsule Take by mouth. Active azelastine (Astelin) 0.1 % nasal spray USE 1 SPRAY(S) IN EACH NOSTRIL EVERY 6 HOURS NEEDED FOR ALLERGY SYMTPOMS Active memantine (Namenda) 10 MG tabletIndicatio ns:MCI (mild cognitive impairment) with memory loss Take 1 tablet by mouth 2 times a day. 60 tablet 09/07/2024 09/08/19 26 Active donepezil (Aricept) 10 MG tabletIndicatio ns:MCI (mild cognitive impairment) with memory loss Take 1 tablet by mouth daily with breakfast. 30 tablet 09/07/2024 09/08/19 26 Active traZODone (Desyrel) 50 MG tabletIndicatio ns:MCI (mild cognitive impairment) with memory loss Take 50 mg nightly 30 tablet 09/07/2024 Active Active Problems Problem Noted Date Diagnosed Date Abnormal cardiovascular stress test 10/30/2023 Abnormal echocardiogram 10/30/2023 Apical variant hypertrophic cardiomyopathy 10/29 Atypical angina 10/30/2023 Daytime somnolence 10/30/2023 Dizziness 10/30/2023 Dyspnea 10/30/2023 Pre-syncope 10/30/2023 Sinus bradycardia 10/30/2023 Snores 10/30/2023 Resolved Problems Problem Noted Date Diagnosed Date Resolved Date Abnormal EKG 10/30/2023 01/30/2025 Chest pain 10/30/2023 01/30/2025 Fatigue 10/30/2023 01/30/2025 ST segment depression 10/30/20232024 Encounters Date Type Department Care Team Description 02/22/2025 Telephone [facility] [address] [place] [address] Lizbeth Araujo from Last 3 Months Immunizations Immunization Administration Dates Next Due Influenza, high-dose, quadrivalent 03/29/2022 Influenza, injectable, quadrivalent, preservativ e free 01/18/2023 MMR 12/04/2020,12/04/2020 Tdap 12/04/2020 Zoster, Recombinant 10/27/2022,05/28/2022 Family History Medical History Relation Name Comments Alzheimer's disease Mother Demi Butterfield Relation Name Status Comments Mother Demi Butterfield Social History Tobacco Use Types Packs/Day Years Used Date Smoking Tobacco: Former Cigarettes 0.5 5 1 - 05/11/1999 Passive Smoke Exposure: Never Smokeless Tobacco: Never Tobacco Cessation:Counseling Given: Not Answered Alcohol Use Standard Drinks/Week Comments Yes 0 [...] drink first t jeremy in the morning (EYE-TIMING MACHINE OPERATOR) to steady your nerves or to get rid of a hangover? 0 01/06/2024 CAGE Questionnaire Score 0 024 Sex and Gender Information Value Date Recorded Sex Assigned at Not on file Legal Sex Male 8:09 PM EDT Gender Identity Not on file Sexual Orientation Not on file Last Filed Vital Signs Vital Sign Reading Time Taken Comments Blood Pressure 114/73 01/06/2024 8:21 PM EDT Pulse 64 01/06/2024 8:21 PM EDT Temperature 36.6 C (97.8 F) 01/06/2024 8:21 PM EDT Respiratory Rate 14 01/06/2024 4:44 PM EDT Oxygen Saturation 99% 01/06/2024 8:21 PM EDT Inhaled Oxygen Concentration - - Weight 87.1 kg (192 lb) 01/06/2024 4:43 PM EDT Height 182.9 cm (6') 01/06/2024 4:43 PM EDT Body Mass Index 26.04 01/06/2024 4:43 PM EDT Plan of Treatment Health Maintenance Due Date Last Done Comments [facility]-Hepatitis C Screening 1954 [facility]-/Child/Adol SDOH Screenings 1954 [facility]- SDOH Screenings 1972 [facility]-Adult SDOH Screenings 1972 CT Colonography 1999 Colonoscopy 1999 FIT-DNA 1999 FIT 1999 FOBT 1999 Sigmoidoscopy 1999 [facility]-Colorectal Cancer Screening 1999 [facility]-Pneumococcal Vaccine: 50 + Years (1 of 1 - PCV) 2004 [facility]-RSV Vaccine: 60+ Years o r (1 - Risk 60-74 years 1-dose series) 2014 [facility]-Depression Screening 10/29/2024 10/30/2023 [id number] Vaccine (2024- season) 2025 03/29/2023, 04/16/2021, 08/19/2020 [facility]-Influenza Vaccine (#1) 01/10/202501/18, 03/29/2022 [facility]-DTaP,Tdap,and Td Vaccine s (2 - Td or Tdap) 12/04/2030 12/04/2020 [facility]-Zoster Vaccines Completed 10/27/2022, 05/28/2022 [facility]-Obesity Intervention Completed 024, 10/30/2023, 10/03/2023 HPV Vaccines Aged Out No longer eligi ble based on patient's age to complete this topic [facility]-HIB Vaccines Aged Out No longer e ligible based on patient's age to complete this topic [facility]-Hepatitis A Vaccines Aged Out No longer eligible based on patient's age to complete this topic [facility]-IPV Vaccines Aged Out No longer e ligible based on patient's age to complete this topic [facility]-Rotavirus Vaccines Aged Out No lo nger eligible based on patient's age to complete this topic Insurance [facility] Care Teams Leaf Conditioner Relationship Specialty Start Date End Date David Urena APRN [address] [place] [address] PCP - General 09/22/20
--- OUTSIDE RECORDS SUMMARY | 2025-04-01 12:45 | XMS_ITS | Encounter Summary ---
Author Organization [facility] Address [address] [place] [address] Care Team Providers Care Technical Instructor Name Role Phone Romel David Silver APRN Primary Care Provider +1- [phone] Encounter Details Date Type Department Care Team (Late st Contact Info) Description 02/22/2025 Telephone [facility] [address] [place] [address] Lizbeth Araujo Social History Tobacco Use Types Packs/Day Years [...] drink first t jeremy in the morning (EYE-BODY WIRER) to steady your nerves or to get [...] documented as of this encounter Care Teams Technical Instructor Relationship Specialty Start Date End Date David Urena APRN [address] [place] [address] PCP - General 09/22/20 documented as of this encounter
--- OUTSIDE RECORDS SUMMARY | 2025-04-01 12:45 | XMS_ITS | Encounter Summary ---
Author Organization [facility] Address [address] [place] [address] Care Team Providers Care Snuff Maker Name Role Phone David Urena APRN Primary Care Provider +1- [phone] Encounter Details Date Type Department Care Team (Late st Contact Info) Description 09/01/2023 Orders Only External Location [address] [place] [address] Provider, External Social History Tobacco Use Types [...] Date/Time Associated Diagnosis Comments MR OUTSIDE IMAGES 09/01/2023 9:51 AM EDT documented in this encounter Results * MR transfer of outside films (09/01/2023 9:51 AM EDT) Anatomical Region Laterality Modality Magnetic Resonan ce 09/01/2023 9:51 AM EDT us External Provider IMG MRI PROCEDURES Final Resul t documented in this encounter Visit Diagnoses Not on filedocumented in this encounter Care Teams Snuff Maker Relationship Specialty Start Date End Date David Urena APRN [address] [place] [address] PCP - General 09/22/20 documented as of this encounter
--- OUTSIDE RECORDS SUMMARY | 2025-04-01 12:45 | XMS_ITS | Clinical Summary ---
Author Organization [facility] Address [address] [place] [address] Care Team Providers Care Per Diem Registered Nurse Name Role Phone Provider, No Known Primary Care Provider Unavail able Allergies No known active allergies Medications predniSONE (DELTASONE) 10 MG tablet Take 6 tabs x 2 d, 5 tabs x 2 d, 4 tabs x 2 d, 3 tabs x 2, 2 tabs x 2 d, 1 tab x 2 d. 42 tablet 1 12/14/2018 Active Social History Tobacco Use Types Packs/Day Years Used Date Smoking Tobacco: Former Cigarettes 0 12/14/1988 - 12/14/1998 Smokeless Tobacco: Never Alcohol Use Standard Drinks/Week Comments No 0 (1 standard drink = 0.6 oz pur e alcohol) AUDIT-C Answer Date Recorded Frequency of Alcohol Consumption Never 12/15/2018 Average Number of Drinks Not on file 019 Frequency of Binge Drinking Not on file 10/2018 Abuse Screen Answer Date Recorded Unsafe at Home or Work/School Not on file Feels Threatened by Someone? Not on file 04/2023 Does Anyone Keep You from Co ntacting Others or Doint Things Outside the Home? Not on file 02/20/2023 Physical Sign of Abuse Present Not on file 1 Housing Stability Answer Date Recorded Current Living Arrangements Not on file 02/09 Potentially Unsafe Housing Conditions Not on raman e 02/20/2023 Family and Community Support Answer Charles e Recorded Help with Day-to-Day Activities Not on file 02/20/2023 Lonely or Isolated Not on file 02/20/2023 Employment Answer Date Recorded Do you want help finding or keeping work or a dante b? Not on file 02/20/2023 Disabilities Answer Date Recorded Concentrating, Remembering, or Making Decisions Difficulty Not on file 02/20/2023 Doing Errands Independently Difficulty Not on fi le 02/20/2023 Education Answer Date Recorded Help with school or training? Not on file Preferred Language Not on file 02/20/2023 Sex and Gender Information Value Date Recorded Sex Assigned at Not on file Legal Sex Male 3:56 PM EDT Gender Identity Not on file Sexual Orientation Not on file Last Filed Vital Signs Vital Sign Reading Time Taken Comments Blood Pressure 100/64 12/14/2018 4:16 PM EDT Pulse 52 12/14/2018 4:16 PM EDT Temperature 36.8 C (98.3 F) 12/14/2018 4:16 PM EDT Respiratory Rate 20 12/14/2018 4:16 PM EDT Oxygen Saturation 99% 12/14/2018 4:16 PM EDT Inhaled Oxygen Concentration - - Weight 91.2 kg (201 lb) 12/14/2018 4:16 PM EDT Height 182.9 cm (6') 12/14/2018 4:16 PM EDT Body Mass Index 27.26 12/14/2018 4:16 PM EDT Plan of Treatment Health Maintenance Due Date Last Done Comments TDAP/TD VACCINES (1 - Tdap) 1973 COLOGUARD 1999 COLON CANCER SCREENING 5 YEAR SIGMOIDOSCOPY 1999 COLONOSCOPY 1999 COLOR[address]AL CANCER SCREENING 1999 CT COLONOGRAPHY 1999 FECAL OCCULT BLOOD TEST 1999 FIT Testing (1 year) 1999 Pneumococcal Vaccine 50+ (1 of 1 - PCV) 2004 ZOSTER VACCINE (1 of 2) 2004 ANNUAL PHYSICAL 12/14/2018 HEPATITIS C SCREENING 12/14/2018 AAA SCREEN ONCE 2019 INFLUENZA VACCINE 12/10/2024 COVID-19 Vaccine ( - season) 2025 Care Teams Per Diem Registered Nurse Relationship Specialty Start Date End Date Provider, No Known [facility] [place] [address] PCP - General 12/14/18
== END 2025-03-31 23:59 ==
LOC: LAB.DROPOF 04-01 12:43
PROVIDERS: PCP Family Medicine; Visit Provider Family Medicine
DX: D64.9 Anemia, unspecified (principal); R73.9 Hyperglycemia, unspecified; E53.8 Deficiency of other specified B group vitamins
CPT/HCPCS: 80053; 82607; 83036; 85025